=== PATIENT | female | born 1955 | race Caucasian/White ===

== ENCOUNTER 2023-09-11 14:40 | Inpatient (IN) | payer OTHER ==
[~2023-09-11] VITALS: Ht 167.6 cm; Wt 72.0 kg
[2023-09-11] VITALS (14 sets, daily range): BP systolic 106–137; BP diastolic 75–103
[~2023-09-11 14:40] MED LIST: ALBU90OI INH; AZIT250 PO; CALCA500CH PO; CYCL10 PO; HYDGUAL120 PO; INTE3SY; OMEP40CA12 PO; OXYACE5T PO; PARO30; RANI150 PO; RIBOFLAVIN; RXOXYACE PO
[2023-09-11 15:09] LABS: Base Excess Venous 2.7 mmol/L; Bicarbonate Venous 26.2 mmol/L (24.0-30.0); PCO2 Venous 36.2 mmHg (38-42); pH Blood Venous 7.47 (7.34-7.37)
[2023-09-11 15:18] LABS: BASOPHILS ABSOLUTE AUTO 0.07 K/mm3 (0.00-0.23); BASOPHILS PERCENT AUTO 1 % (0-2); EOSINOPHILS ABSOLUTE AUTO 0.03 K/mm3 (0.00-0.68); EOSINOPHILS PERCENT AUTO 0 % (0-6); Hematocrit 39.1 % (33.0-51.0); Hemoglobin 12.8 g/dL (11.5-16.0); IMMATURE GRAN ABSOLUTE AUTO 0.12 K/mm3 (0.00-0.10); IMMATURE GRAN PERCENT AUTO 1 % (0-1); LYMPHOCYTES ABSOLUTE AUTO 1.22 K/mm3 (0.84-5.20); LYMPHOCYTES PERCENT AUTO 8 % (21-46); MONOCYTES ABSOLUTE AUTO 1.15 K/mm3 (0.16-1.47); MONOCYTES PERCENT AUTO 8 % (4-13); Mean Corpuscular HGB 27.6 pg (26.0-34.0); Mean Corpuscular HGB Conc 32.7 g/dL (31.5-36.5); Mean Corpuscular Volume 84 fL (80-100); Mean Platelet Volume 10.1 fL (9.1-12.4); NEUTROPHILS ABSOLUTE AUTO 12.73 K/mm3 (1.96-9.15); NEUTROPHILS PERCENT AUTO 83 % (41-73); Platelet Count 190 K/mm3 (150-400); RDW Coefficient Variation 13.1 % (11.7-14.2); RDW Standard Deviation 39.9 fL (35.1-46.3); Red Blood Cell Count 4.64 M/mm3 (3.80-5.20); White Blood Cell Count 15.32 K/mm3 (4.00-11.30)
[2023-09-11 15:22] LABS: Albumin, Blood 2.8 g/dL (3.4-5.0); Albumin/Globulin Ratio 0.7 (0.8-1.8); Bilirubin, Total 1.1 mg/dL (0.1-1.0); Bun/Creatinine Ratio 37.7 (12.0-20.0); Creatinine, Blood 0.64 mg/dL (0.40-1.00); Globulin, Blood 4.1 g/dL (2.2-4.0); Magnesium, Blood 2.1 mg/dL (1.6-2.4); Potassium, Blood 3.7 mmol/L (3.5-5.5); Total Protein, Blood 6.9 g/dL (6.4-8.2)
[2023-09-11 15:24] LABS: International Normalized Ratio 1.13; Prothrombin Time Results 11.8 Sec (9.7-11.5)
[2023-09-11 15:42] LABS: Influenza A, PCR NEGATIVE (NEGATIVE); Influenza B, PCR NEGATIVE (NEGATIVE); Resp Syncytial Virus, PCR NEGATIVE (NEGATIVE); SARS-Cov-2 (COVID-19) PCR, MMC NEGATIVE (NEGATIVE)
--- NOTE | 2023-09-11 20:25 | NUR ---
PATIENT ARRIVED TO ICU 10 VIA GURNEY FROM ED. PATIENT AWAKE AND FEARFUL. EYAK. VOICE HORSE WHISPER. WITH ANY STIMULI AND WITH TALKING PATIENT HAVING HARSH NONPRODUCTIVE COUGH. OXYGEN 4L/NC INCREASED TO 6L/OXYMIZER AND NEEDING COACHING WITH FOCUSED BREATHING. PATIENT TRANSFER TO BED USING SLIDER SHEET AND PLACED ON ICU MONITORS. PATIENT C/O RIGHT LEG PAIN WITH SLIGHT MOVEMENT.
[2023-09-11 21:22] LABS: Source, Urine Foley catheter
--- NOTE | 2023-09-11 21:30 | NUR ---
DONALD ACCOUNT SUPERVISOR, NOTIFIED OF TEMP 101.2 AND LACTIC CONTINUES 2.9. PLAN TO RECHECK LACTIC IN THE AM. NS @75/HR. NIÑO PLACED FOR CLOSE MONITORING OF I&O AND DIFFICULTY WITH INCONT DUE TO SOB AND HARSH COUGH. NIÑO WITH TEMP PROBE PLACED. DIFFICULT PLACEMENT DUE TO PAIN TO RIGHT LEG.
[2023-09-11 21:42] LABS: Bilirubin, Urine Neg (Neg); Blood, Urine 2+ (Neg); Glucose Qualitative, Urine Neg (Neg); Ketones, Urine 1+ (Neg); Leukocyte Esterase, Urine 1+ (Neg); Nitrite, Urine Neg (Neg); Protein, Urine 2+ (Neg); Specific Gravity, Urine 1.015 (1.003-1.022); Urobilinogen, Urine 1+ (Normal)
[2023-09-11 21:50] LABS: Appearance, Urine Hazy (Clear); Bacteria Few /hpf; Color, Urine Yellow (P-Yellow); Squamous Epithelial Cells Many /hpf (Few); Transitional Epithelial Cells Few /hpf (0-Rare); White Blood Cells, Urine 0-2 /hpf (0-5)
--- NOTE | 2023-09-11 23:00 | NUR ---
SPOKE WITH DONALD HEREDIA REGARDING PROLONGED QT. PLAN TO GIVE MAG IV BEFORE AZITHROMYCIN DOSE. IV FLUIDS CHANGED TO TKO DUE TO RIGHT HEART STRAIN FROM PE'S.
[2023-09-12] VITALS (60 sets, daily range): BP systolic 88–152; BP diastolic 62–131
[2023-09-12 03:36] LABS: BASOPHILS ABSOLUTE AUTO 0.08 K/mm3 (0.00-0.23); BASOPHILS PERCENT AUTO 1 % (0-2); EOSINOPHILS ABSOLUTE AUTO 0.12 K/mm3 (0.00-0.68); EOSINOPHILS PERCENT AUTO 1 % (0-6); Hematocrit 32.5 % (33.0-51.0); Hemoglobin 10.7 g/dL (11.5-16.0); IMMATURE GRAN ABSOLUTE AUTO 0.09 K/mm3 (0.00-0.10); IMMATURE GRAN PERCENT AUTO 1 % (0-1); LYMPHOCYTES ABSOLUTE AUTO 1.69 K/mm3 (0.84-5.20); LYMPHOCYTES PERCENT AUTO 14 % (21-46); MONOCYTES ABSOLUTE AUTO 1.35 K/mm3 (0.16-1.47); MONOCYTES PERCENT AUTO 11 % (4-13); Mean Corpuscular HGB Conc 32.9 g/dL (31.5-36.5); Mean Corpuscular Volume 85 fL (80-100); Mean Platelet Volume 10.6 fL (9.1-12.4); NEUTROPHILS ABSOLUTE AUTO 8.77 K/mm3 (1.96-9.15); NEUTROPHILS PERCENT AUTO 72 % (41-73); Platelet Count 163 K/mm3 (150-400); RDW Coefficient Variation 13.2 % (11.7-14.2); RDW Standard Deviation 40.4 fL (35.1-46.3); Red Blood Cell Count 3.82 M/mm3 (3.80-5.20)
[2023-09-12 03:50] LABS: International Normalized Ratio 1.11; Prothrombin Time Results 11.6 Sec (9.7-11.5)
[2023-09-12 04:00] LABS: Albumin, Blood 2.3 g/dL (3.4-5.0); Albumin/Globulin Ratio 0.6 (0.8-1.8); Bilirubin, Total 0.7 mg/dL (0.1-1.0); Bun/Creatinine Ratio 37.7 (12.0-20.0); Calcium, Blood 8.3 mg/dL (8.5-10.1); Creatinine, Blood 0.58 mg/dL (0.40-1.00); Globulin, Blood 3.7 g/dL (2.2-4.0); Magnesium, Blood 3.2 mg/dL (1.6-2.4); Potassium, Blood 3.6 mmol/L (3.5-5.5)
--- NOTE | 2023-09-12 06:46 | NUR ---
SUMMARY PATIENT SLEEPING MOST OF THE NIGHT. RESP EVEN AND UNLABORED, BIOX 93-97% ON 7L/OXY. WHEN AWAKE HAVING HARSH NONPRODUCTIVE COUGH, LUNG SOUNDS CONTINUE TO BE COARSE T/O. RIGHT LEG CONTINUES TO BE PAINFUL WITH SLIGHT MOVEMENT. NIÑO DRAINING SMALL AMT OF DARK AMBIKA URINE.
--- NOTE | 2023-09-12 08:51 | NUR ---
AM NOTE.... ASSUMED CARE OF PT AT 0700. PT IS A&Ox4, VERY PAUMA. SHE IS IN SR/ST IN THE 90'S TO LOW 100'S. BP IS SOFT BUT STABLE WITH MAPS >65. PT C/O OF BLE PAIN, PEDAL PULSES ARE PALPABLE BILATERALLY. SHE IS ON 7L OXYMIZER WITH O2 SATS>89%. L/S COARSE T/O RR IS IN THE 20'S. BT PRESENT AND HYPOACTIVE, ABD IS SOFT AND NONTENDER TO PALPATION. TEMP NIÑO IS PATENT AND DRAINING AMBIKA URINE TO GRAVITY. CURRENT TEMP IS 99.3. CALL LIGHT IN REACH WILL CONTINUE TO MONITOR.
--- NOTE | 2023-09-12 12:46 | NUR ---
0010--- PT'S EARS CLEANED CALLED DR HODGE TO COME LOOK INTO PT'S EARS. SHE IS COMPLAINING OF NOT BEING ABLE TO HEAR WELL AND SHE HAS A HISTORY OF NEEDING THEM CLEANED OUT FREQ. PT'S FRIEND IN ROOM IS STRONGLY ADVOCATING FOR THE PATIENTS EARS TO BE CLEANED OUT. AFTER DR HODGE SAW THEY WERE VERY IMPACTED HE ADVISED US TO USE SALINE OR SOME OTHER EAR CLEANING PRODUCT TO FLUSH IN HER EARS TO HELP LOOSEN THE IMPACTED EAR WAX. I USED 2 SALINE SYRINGE FLUSHES INTO EACH YEAR AND THEN SHE WANTED A WARM WASH CLOTH PLACED ON EACH EAR TO HOLD FOR A WHILE. NO WAX CAME OUT OF YET BUT WILL FLUSH AGAIN LATER.
--- NOTE | 2023-09-12 15:07 | NUR ---
PT LEFT FOR BOX PERSON PT LEFT FOR BOX PERSON AT 1505.
--- NOTE | 2023-09-12 17:44 | NUR ---
SHIFT SUMMARY.... NO ACUTE NEGATIVE CHANGES NOTED THIS SHIFT. THE PT'S EARS WERE CLEANED OUT TWICE BY MILTON CROOKS RN. THE PT CONTINUES TO BE VERY [place] AFTER THE CLEANING. THE PT'S VS STABLE T/O THIS SHIFT. HER O2 HAS BEEN TITRATED DOWN FROM 7L OXYMIZER TO 3L NC WITH O2 SATS>90%. THE PT HAS BEEN MEDICATED x3 FOR PAIN PER EMAR. TMAX THIS SHIFT 100.4. THE PT HAS NOT HAD A BM. SHE WAS TAKEN TO THE VETERINARY MEDICINE SCIENTIST AT APROX 1500 AND RETURNED AT 1605. SHE CONTINUES TO BE IN SINUS TACH IN THE LOW 100'S. BP IS STABLE AT 136/92. CALL LIGHT IN REACH WILL CONTINUE TO MONITOR UNTIL REPORT IS GIVEN TO ONCOMING RN.
--- NOTE | 2023-09-12 18:00 | NUR ---
1700 -- cleaned out ears with hydrogen peroxide flushes got out a significant amount of hard wax out of each ear. After flushing for about 30 minutes she stated she could hear again. She agreed to having the ear softening ointment tonight, but not now.
--- NOTE | 2023-09-12 20:10 | NUR ---
PATIENT SITTING UP WATCHING TV. CONTINUES TO C/O RIGHT LEG PAIN GOOD PAIN RELIEF WITH MORPHINE IV. VOICE CONTINUES TO BE HORSE, DRY NONPRODUCTIVE COUGH APPEARS TO TRIGGER WITH TALKING. PATIENT HEARING CONVERSATION BETTER TONIGHT. BIOX 93% ON 3L/NC. DRESSING CD&I TO RIGHT NECK AREA SOFT WITH NO SWELLING SEEN. EDUCATION REGARDING DVT/PE/BLOOD THINNERS/AND IVC FILTERS.
[2023-09-12] MEDS ORDERED: MELATONIN5 M1 PO (23:39)
[2023-09-13] VITALS (7 sets, daily range): BP systolic 121–148; BP diastolic 82–113
[2023-09-13 03:26] LABS: BASOPHILS ABSOLUTE AUTO 0.09 K/mm3 (0.00-0.23); BASOPHILS PERCENT AUTO 1 % (0-2); EOSINOPHILS ABSOLUTE AUTO 0.29 K/mm3 (0.00-0.68); EOSINOPHILS PERCENT AUTO 3 % (0-6); Hematocrit 32.4 % (33.0-51.0); Hemoglobin 10.7 g/dL (11.5-16.0); IMMATURE GRAN ABSOLUTE AUTO 0.05 K/mm3 (0.00-0.10); IMMATURE GRAN PERCENT AUTO 1 % (0-1); LYMPHOCYTES PERCENT AUTO 15 % (21-46); MONOCYTES ABSOLUTE AUTO 0.98 K/mm3 (0.16-1.47); MONOCYTES PERCENT AUTO 9 % (4-13); Mean Corpuscular HGB 27.9 pg (26.0-34.0); Mean Corpuscular Volume 84 fL (80-100); Mean Platelet Volume 9.9 fL (9.1-12.4); NEUTROPHILS ABSOLUTE AUTO 7.59 K/mm3 (1.96-9.15); NEUTROPHILS PERCENT AUTO 72 % (41-73); Platelet Count 209 K/mm3 (150-400); RDW Coefficient Variation 13.1 % (11.7-14.2); RDW Standard Deviation 40.1 fL (35.1-46.3); Red Blood Cell Count 3.84 M/mm3 (3.80-5.20)
[2023-09-13 03:51] LABS: Albumin, Blood 2.3 g/dL (3.4-5.0); Anion Gap 7 mmol/L (6-16); Blood Urea Nitrogen 18 mg/dL (8-24); Bun/Creatinine Ratio 34.3 (12.0-20.0); CO2, Blood 25 mmol/L (21-32); Calcium, Blood 8.2 mg/dL (8.5-10.1); Chloride, Blood 108 mmol/L (98-108); Creatinine, Blood 0.53 mg/dL (0.40-1.00); Glomerular Filtration Rate 99 (60-); Glucose, Blood 91 mg/dL (70-99); Magnesium, Blood 2.4 mg/dL (1.6-2.4); Phosphorus, Blood 3.8 mg/dL (2.5-4.9); Potassium, Blood 3.7 mmol/L (3.5-5.5); Sodium, Blood 140 mmol/L (136-145)
--- NOTE | 2023-09-13 07:19 | NUR ---
PATIENT SLEEPING OFF AND ON T/O NIGHT. CONTINUES TO BECOME SOB WITH ACTIVITY AND TALKING, OCCASIONAL HARSH DRY COUGH. REMAINS ON 3L/NC TO MAINTAIN BIOX >90% CONTINUES TO HAVE SEVERE RIGHT LEG PAIN WITH SLIGHT MOVEMENT. ON BEDPAN TWICE DURING THE NIGHT PASSING SMALL SOFT BROWN STOOL ONCE AND FLATUS 2ND TIME. ABLE TO ASSIST WITH REPOSITIONING IN BED.
--- NOTE | 2023-09-13 17:34 | NUR ---
SUMMARY PT A/O X4. HAS PAIN IN R LEG WHEN MOVING IT. TYLENOL AND MORPHINE GIVEN. SOB WITH EXERTION. TRIED TO GET PT OOB TO CHAIR BUT PT DECLINED. OFFERED TO HELP HER SIT AT EDGE OF BED BUT SHE ALSO DECLINED. PT GETS ANXIOUS AND SOB WHEN DISCUSSING MOVEMENT AND GETTING HER BACK TO HER BASELINE STRENGTH. PHYSICAL THERAPY ORDERED BUT NO EVAL TODAY. STARTED ON HEPARIN GTT TODAY AND LOVENOX STOPPED. PT IS TO HAVE AN ADRENAL BIOPSY ON 09/15. BOTH SON'S UPDATED BY DR. HODGE.
--- NOTE | 2023-09-13 18:40 | NUR ---
Pt transfered from ICU. Pt oriented to room and call light. Vss. Will continue to monitor,
--- NOTE | 2023-09-13 22:29 | NUR ---
ASSUMPTION OF CARE: PATIENT IS ALERT AND ORIENTED X 4 WITH SEVERE ANXIETY DUE TO PAIN AT SHIFT CHANGE. PATIENT YELLING OUT IN PAIN. AT ASSUMPTION OF CARE SHE WAS SITTING ON BSC, BOWEL MOVEMENT WITH SMALL STREAKS OF HEMMROIDAL BLOOD. PATINET INFUSING HEPARIN VERIFIED WITH LEAVING RN. 4mg OF MORPHINE WAS GIVEN FOR WOB, PAIN, AND ANXIETY. WITH GREAT AFFECT, PATIENT WOB DECREASED FROM LOW 30'S WITH TRANSFER FROM BSC TO BED AND REPOSITION TO 20'S AND CURRENTLY IN THE UPPER TEENS. SPO2 DURING EXERTION DID DROP DUE TO INEFFECTIVE BREATHING PATTERN AND ANXIETY LOWEST WAS 81% ON 3L AFTER MEDICATING UP TO UPPER 90'S MAINLY 96%. PATIENT DENIES CHEST PAIN PRESSURE OR SOB. INFUSED 2 X ABX ROCEPHIN AND AZITHRO, HEPARIN DRIP DID GET INCREASED SEE DEC. TELE AND CONTINUOUS MONITOR IN PLACE.
[2023-09-14] VITALS (7 sets, daily range): BP systolic 123–142; BP diastolic 71–99
--- NOTE | 2023-09-14 01:04 | NUR ---
ASSUMPTION OF CARE RECEIVED REPORT FROM KATHRYN COSTA AND ASSUMED CARE. PT IS RESTING IN BED, NO CONCERNS AT THIS TIME. WILL CONTINUE TO MONITOR AND WILL CONTINUE PLAN OF CARE. HEPARIN GTT AT 21 U/KG/HR.
[2023-09-14 03:19] LABS: BASOPHILS ABSOLUTE AUTO 0.08 K/mm3 (0.00-0.23); BASOPHILS PERCENT AUTO 1 % (0-2); EOSINOPHILS ABSOLUTE AUTO 0.32 K/mm3 (0.00-0.68); EOSINOPHILS PERCENT AUTO 3 % (0-6); Hematocrit 30.7 % (33.0-51.0); Hemoglobin 10.2 g/dL (11.5-16.0); IMMATURE GRAN ABSOLUTE AUTO 0.05 K/mm3 (0.00-0.10); IMMATURE GRAN PERCENT AUTO 1 % (0-1); LYMPHOCYTES ABSOLUTE AUTO 1.26 K/mm3 (0.84-5.20); LYMPHOCYTES PERCENT AUTO 12 % (21-46); MONOCYTES ABSOLUTE AUTO 0.93 K/mm3 (0.16-1.47); MONOCYTES PERCENT AUTO 9 % (4-13); Mean Corpuscular HGB Conc 33.2 g/dL (31.5-36.5); Mean Corpuscular Volume 84 fL (80-100); Mean Platelet Volume 9.7 fL (9.1-12.4); NEUTROPHILS ABSOLUTE AUTO 7.74 K/mm3 (1.96-9.15); NEUTROPHILS PERCENT AUTO 75 % (41-73); Platelet Count 237 K/mm3 (150-400); RDW Standard Deviation 39.7 fL (35.1-46.3); Red Blood Cell Count 3.64 M/mm3 (3.80-5.20); White Blood Cell Count 10.38 K/mm3 (4.00-11.30)
[2023-09-14 03:39] LABS: Albumin, Blood 2.2 g/dL (3.4-5.0); Albumin/Globulin Ratio 0.6 (0.8-1.8); Bilirubin, Total 0.4 mg/dL (0.1-1.0); Bun/Creatinine Ratio 33.3 (12.0-20.0); Calcium, Blood 8.3 mg/dL (8.5-10.1); Creatinine, Blood 0.45 mg/dL (0.40-1.00); Globulin, Blood 3.7 g/dL (2.2-4.0); Potassium, Blood 3.7 mmol/L (3.5-5.5); Total Protein, Blood 5.9 g/dL (6.4-8.2)
--- NOTE | 2023-09-14 06:26 | NUR ---
PT HAS RESTED WELL OF AND ON THROUGHOUT SHIFT. DENIES COMPLAINTS OR CONCERNS THIS MORNING. PLAN IS TO CONTINUE HEPARIN PER PHARMACY ORDERS UNTIL 6 HOURS PRIOR TO BIOPSY SCHEDULED ON 09/15. HEPARIN ADJUSTED PER PHARMACY ORDERS TO 24 U/KG/ML AND VERIFIED WITH MARYLIN RN. WILL PROVIDE BEDSIDE REPORT TO DAY SHIFT RN.
--- NOTE | 2023-09-14 07:59 | NUR ---
NURSING PCU DAYSHIFT: Assumed care of pt at approx 0700. A/O, very anxious, pleasant, cooperative w/care though requires significant amount of encouragement. [place], b/l hearing devices in place. C/O 6/10 RLE pain w/minimal movement and at times c/o pain while at rest. Skin is intact w/no breakdown noted. Repositions w/staff assist. Tele in place, ST 110-115, no c/o CP/pressure, SBP 130's, no noted edema. L/S fairly cta in upper lobes though coarse in mid/lower lobes, O2 sat mid 90's on 3L NC, respirations rapid and shallow, dyspnea w/minimal exertion, cough producing clear/stringy sputum, continuous O2 monitoring in place. Abd SNT, BT+, last BM today, FC w/stat lock in place. No s/s of acute distress this a.m. Pt requested bedpan for BM this a.m. and initially refused to get OOB stating "I can't" before attempting. With much encouragement from staff, pt assisted to edge of bed and was able to ambulate to bathroom w/FWW. Currently sitting in recliner having breakfast, visiting with son at bedside. Plan to remove FC this a.m. after family visit. Pt denies any current needs or qustions regarding plan of care. Awaiting rounding from PMD, call light in reach, cont to monitor for changes.
--- NOTE | 2023-09-14 17:35 | NUR ---
NURSING PCU DAYSHIFT SUMMARY: Pt has done very well t/o shift. Spent entire day OOB in recliner. FC removed, ambulates to bathroom w/FWW to void. Shower this a.m. w/assistance, tolerated well. Continues to have cough producing clear sputum. O2 sat stable on 3L NC. Several visitors at bedside t/o the shift. Pt has remained in good spirits and has been participating with ADL's. Worked w/therapy today and is agreeable with discharge to SNF. Spoke w/labor and employment paralegal and PMD regarding broch/bx, plan for possible procedure on Tuesday, pt and son updated regarding plan. No s/s of acute distress at this time. Pt remains in recliner, RN at bedside for powerglide placement. Call light in reach, cont to monitor until rpt is given to NOC RN.
--- NOTE | 2023-09-14 20:53 | NUR ---
AOC: CHANGES FROM PREVIOUS SHIFT: NO LONGER HAS NIÑO IN PLACE. PATIENT IS TOLERATING EXERTION BETTER, HEARTRATE IS SLIGHTLY INCREASED 110-120'S MOST LIKELY DUE TO RIGHT HEART STRAIN RR STILL <20 AT REST. PATIENT O2 >94% ON 3L VIA NC. PATIENT EDUCATED FOR >30MINUTES ON PLAN OF CARE, NEW PLAN FOR Bx, MEDICATIONS, AND CURRENT ILLNESS. DENIES CHEST PAIN PRESSURE OR SOB AT REST. IMPROVED PAIN MANAGEMENT WITH OXYCODONE. YOSI IN THE RECLINER PILLOW SUPPORT, INFUSING HEPARIN AT 27 U/KG, WHICH WAS CHANGED FROM DURING DAY, SO HEPARIN THERAPY STILL BEING MONITORED BY PHARM CLOSELY. JULIET Chavira RN CONFIRMED HEPARIN. PATIENT OVERALL STATUS IMPROVING ABX RUNNING.
[2023-09-15] VITALS (20 sets, daily range): BP systolic 108–149; BP diastolic 69–100
[2023-09-15 00:57] LABS: BASOPHILS ABSOLUTE AUTO 0.06 K/mm3 (0.00-0.23); BASOPHILS PERCENT AUTO 1 % (0-2); EOSINOPHILS ABSOLUTE AUTO 0.26 K/mm3 (0.00-0.68); EOSINOPHILS PERCENT AUTO 2 % (0-6); Hematocrit 29.8 % (33.0-51.0); Hemoglobin 9.9 g/dL (11.5-16.0); IMMATURE GRAN ABSOLUTE AUTO 0.09 K/mm3 (0.00-0.10); IMMATURE GRAN PERCENT AUTO 1 % (0-1); LYMPHOCYTES ABSOLUTE AUTO 1.59 K/mm3 (0.84-5.20); LYMPHOCYTES PERCENT AUTO 13 % (21-46); MONOCYTES PERCENT AUTO 9 % (4-13); Mean Corpuscular HGB 28.2 pg (26.0-34.0); Mean Corpuscular HGB Conc 33.2 g/dL (31.5-36.5); Mean Corpuscular Volume 85 fL (80-100); Mean Platelet Volume 9.9 fL (9.1-12.4); NEUTROPHILS ABSOLUTE AUTO 8.77 K/mm3 (1.96-9.15); NEUTROPHILS PERCENT AUTO 74 % (41-73); Platelet Count 307 K/mm3 (150-400); RDW Coefficient Variation 12.9 % (11.7-14.2); RDW Standard Deviation 39.5 fL (35.1-46.3); Red Blood Cell Count 3.51 M/mm3 (3.80-5.20); White Blood Cell Count 11.87 K/mm3 (4.00-11.30)
[2023-09-15 01:18] LABS: Albumin, Blood 2.2 g/dL (3.4-5.0); Anion Gap 8 mmol/L (6-16); Blood Urea Nitrogen 13 mg/dL (8-24); Bun/Creatinine Ratio 25.5 (12.0-20.0); CO2, Blood 25 mmol/L (21-32); Calcium, Blood 8.2 mg/dL (8.5-10.1); Chloride, Blood 104 mmol/L (98-108); Creatinine, Blood 0.51 mg/dL (0.40-1.00); Glomerular Filtration Rate 100 (60-); Glucose, Blood 100 mg/dL (70-99); Potassium, Blood 3.6 mmol/L (3.5-5.5); Sodium, Blood 137 mmol/L (136-145)
--- NOTE | 2023-09-15 06:15 | NUR ---
EOS: PATIENT NPO SINCE MIDNIGHT. COOPERATIVE WITH CARE, SLEEPT MOST OF THE NIGHT. HEPARIN THERAPIC, NO CHANGE. NO OTHER CHANGES FROM ASSUMPTION OF CARE
--- NOTE | 2023-09-15 14:58 | NUR ---
Spiritual care visit conducted. Patient is sitting on a chair and alert. She immediately shares her frustration about being missed diagnosed, unheard and dismissed as a patient. She also speaks of her disappointment at now being tested for some fairly significant medical issues that could have been prevented if someone would have listened at the different facilities she went to for help. Patient then talks at length about the of her spouse (patient stated that this program counselor was present at his ), she talks about her family, possible loss of independence and how she might manage given the worst case scenario. We discuss her rhea and how she leans into God for support. I normalize her frustrations and feelings, highlight the positives in her medical care, and provide therapeutic listening and prayer. PAtient responded well and showed signs of greater peace. I will cotninue to remian available to patient and family.
--- NOTE | 2023-09-15 15:02 | NUR ---
09/15/23 1502 Jessica Ibarra HISTORY, CHART, MEDICATIONS AND ALLERGIES REVIEWED BEFORE START OF PROCEDURE. PATIENT CONFIRMS NPO STATUS AND AGREES WITH SCHEDULED PROCEDURE. 3-LEAD EKG REVIEWED WITH PHYSICIAN PRIOR TO START OF PROCEDURE. MONITOR INTACT WITH CONTINUOUS PULSE OXIMETRY,CAPNOGRAPHY, 3-LEAD EKG, INTERMITTENT BP. SUPPLEMENTAL O2 TO BE TITRATED THROUGHOUT PROCEDURE TO MAINTAIN O2 SATURATION ABOVE 90%. PATIENT DETERMINED TO BE ASA APPROPRIATE FOR PROPOFOL SEDATION PRIOR TO START OF PROCEDURE BY .
--- NOTE | 2023-09-15 17:27 | NUR ---
END OF SHIFT PT A&O X4. VSS. MONITOR SHOWING ST, HR 100-110s. SPO2 > 92% ON 3L NC W/ PT REPORT OF RA @ BASELINE. PT COUGHING SMALL AMOUNT OF CLEAR SPUTUM THIS SHIFT. PT NPO TODAY FOR BRONCH. PT BACK FROM [facility]ONCH W/ MD GROSS INSTRUCTION FOR PT TO REMAIN NPO UNTIL 1800 POST PROCEDURE & ASSESS ABILITY TO SWALLOW WATER BEFORE RESUMING REGULAR DIET. HEPARIN GTT ON STANDBY PRIOR TO PROCEDURE & WILL REMAIN ON STANDBY UNTIL 1900 PER MD GROSS INSTRUCTION. PT REPORTING R HIP & RLE PAIN, REQUIRING PAIN MEDICATION PER EMAR/PT REQUEST THIS SHIFT.
[2023-09-16] VITALS (7 sets, daily range): BP systolic 117–131; BP diastolic 68–79
[2023-09-16 01:15] LABS: BASOPHILS ABSOLUTE AUTO 0.06 K/mm3 (0.00-0.23); BASOPHILS PERCENT AUTO 1 % (0-2); EOSINOPHILS ABSOLUTE AUTO 0.13 K/mm3 (0.00-0.68); EOSINOPHILS PERCENT AUTO 1 % (0-6); Hematocrit 29.3 % (33.0-51.0); Hemoglobin 9.7 g/dL (11.5-16.0); IMMATURE GRAN ABSOLUTE AUTO 0.09 K/mm3 (0.00-0.10); IMMATURE GRAN PERCENT AUTO 1 % (0-1); LYMPHOCYTES ABSOLUTE AUTO 1.27 K/mm3 (0.84-5.20); LYMPHOCYTES PERCENT AUTO 11 % (21-46); MONOCYTES ABSOLUTE AUTO 1.15 K/mm3 (0.16-1.47); MONOCYTES PERCENT AUTO 10 % (4-13); Mean Corpuscular HGB Conc 33.1 g/dL (31.5-36.5); Mean Corpuscular Volume 84 fL (80-100); Mean Platelet Volume 9.5 fL (9.1-12.4); NEUTROPHILS ABSOLUTE AUTO 9.16 K/mm3 (1.96-9.15); NEUTROPHILS PERCENT AUTO 77 % (41-73); Platelet Count 338 K/mm3 (150-400); RDW Coefficient Variation 13.2 % (11.7-14.2); Red Blood Cell Count 3.47 M/mm3 (3.80-5.20); White Blood Cell Count 11.86 K/mm3 (4.00-11.30)
[2023-09-16 01:33] LABS: Albumin, Blood 2.2 g/dL (3.4-5.0); Anion Gap 6 mmol/L (6-16); Blood Urea Nitrogen 9 mg/dL (8-24); Bun/Creatinine Ratio 18.8 (12.0-20.0); CO2, Blood 26 mmol/L (21-32); Calcium, Blood 8.3 mg/dL (8.5-10.1); Chloride, Blood 107 mmol/L (98-108); Creatinine, Blood 0.48 mg/dL (0.40-1.00); Glomerular Filtration Rate 102 (60-); Glucose, Blood 117 mg/dL (70-99); Phosphorus, Blood 3.8 mg/dL (2.5-4.9); Potassium, Blood 3.6 mmol/L (3.5-5.5); Sodium, Blood 139 mmol/L (136-145)
--- NOTE | 2023-09-16 04:21 | NUR ---
SHIFT SUMMARY. PT HAS BEEN DOING WELL THIS SHIFT. AOX4, PLEASANT, COOPERATIVE WITH CARE. ABLE TO SLEEP THROUGH MOST OF SHIFT AFTER SHIFT ASSESSMENT AND 2100 MED PASS. CALLS APPROPRIATELY FOR ASSISTANCE. PAIN WELL MANAGED PER EMAR. HAS BEEN MAINTAINING O2 SATS >92% THROUGHOUT SHIFT ON 3 L O2 VIA NC. HEPARIN INFUSION RUNNING SINCE 1899 LAST NIGHT WITHOUT DIFFICULTY OR PAUSE. TITRATED THIS MORNING WITH ASSISTANCE FROM JACY JIMENEZ RN. WAS ABLE TO EAT SNACKS YESTERDAY EVENING WITHOUT DIFFICULTY INDEPENDENTLY. BED LOCKED IN LOWEST POSITION. CALL LIGHT LEFT WITHIN REACH.
[2023-09-16 11:00] LABS: SARS-Cov-2 (COVID-19) PCR, MMC NEGATIVE (NEGATIVE)
[2023-09-16] MEDS ORDERED: Acetaminophen650 M1 PO (14:24)
[2023-09-16] MEDS ORDERED: CARB10OTL BOTHEARS (14:29)
[2023-09-16] MEDS ORDERED: GABA100 PO (14:29)
[2023-09-16] MEDS ORDERED: OXAYDO5 M1 PO (14:37)
[2023-09-16] MEDS ORDERED: XARELTO20 MG PO (14:38)
[2023-09-16] MEDS ORDERED: VISBIOME 112.51 EACH PO (14:38)
--- NOTE | 2023-09-16 17:38 | NUR ---
ASSUMED CARE OF PT AT 0700 THIS AM. CARE MANAGEMENT WORKING ON ARRANGEMENTS FOR PT TRANSFER TO [facility]. PT WAS INITIALLY RELUCTANT AND ANXIOUS TO BE DISCHARGED TODAY, BUT AFTER DISCUSSION WITH CARE MANAGEMENT AND DR HODGE TODAY, PT IS AMENABLE TO DISCHARGE TODAY. DISCHARGE ORDERS OBTAINED AND PAPERWORK COMPLETED AND READY FOR TRANSFER. [facility] CONTACTED WILBERTO IN CARE MANAGEMENT, THEY ARE UNABLE TO TAKE PT TODAY DUE TO STAFFING ISSUES. PLAN IS TO DISCHARGE TOMORROW. PT HAS DONE WELL T/O THE DAY, VSS. TEMP 100.[address] HODGE NOTIFIED. PT IS ABLE TO USE CALL LIGHT FOR NEEDS. CALL LIGHT IN REACH. WILL CONITNUE TO MONITOR/TREAT AND GIVE REPORT TO NOC SHIFT RN.
[2023-09-17 05:16] VITALS: BP 130/86
[2023-09-17 05:28] LABS: BASOPHILS ABSOLUTE AUTO 0.07 K/mm3 (0.00-0.23); BASOPHILS PERCENT AUTO 1 % (0-2); EOSINOPHILS ABSOLUTE AUTO 0.43 K/mm3 (0.00-0.68); EOSINOPHILS PERCENT AUTO 4 % (0-6); Hemoglobin 9.2 g/dL (11.5-16.0); IMMATURE GRAN ABSOLUTE AUTO 0.17 K/mm3 (0.00-0.10); IMMATURE GRAN PERCENT AUTO 2 % (0-1); LYMPHOCYTES ABSOLUTE AUTO 1.47 K/mm3 (0.84-5.20); LYMPHOCYTES PERCENT AUTO 14 % (21-46); MONOCYTES ABSOLUTE AUTO 1.04 K/mm3 (0.16-1.47); MONOCYTES PERCENT AUTO 10 % (4-13); Mean Corpuscular HGB Conc 32.9 g/dL (31.5-36.5); Mean Corpuscular Volume 85 fL (80-100); Mean Platelet Volume 9.4 fL (9.1-12.4); NEUTROPHILS ABSOLUTE AUTO 7.27 K/mm3 (1.96-9.15); NEUTROPHILS PERCENT AUTO 70 % (41-73); Platelet Count 382 K/mm3 (150-400); RDW Coefficient Variation 13.2 % (11.7-14.2); RDW Standard Deviation 40.8 fL (35.1-46.3); Red Blood Cell Count 3.28 M/mm3 (3.80-5.20); White Blood Cell Count 10.45 K/mm3 (4.00-11.30)
--- NOTE | 2023-09-17 05:54 | NUR ---
SHIFT SUMMARY NO ACUTE CHANGES THIS SHIFT. VSS. REMAINS ON HEPARIN GTT, WO INCIDENT. CONTINUES WITH MOIST COUGHING UP OF CLEAR SPUTUM. PAIN CONTINUES IN R LEG, MEDS PER EMAR ADMINISTERED TO GOOD EFFECT. PT REMAINS PLEASANT AND COOPERATIVE. STATES FEELING READY FOR DC TO SNF TODAY. RESTING OFF AND ON THIS SHIFT. NONIMPULSIVE BUT BED ALARM REMAINS ON A PRECAUTION.
[2023-09-17 07:55] VITALS: BP 129/77
[2023-09-17 11:21] LABS: SARS-Cov-2 (COVID-19) PCR, MMC NEGATIVE (NEGATIVE)
[2023-09-17 11:40] VITALS: BP 119/82
--- NOTE | 2023-09-17 13:27 | NUR ---
DISCHARGE this rn assumed care at 0700. vital signs stable and have remained stable. patient is alert and oriented x4. perrla. patient is able to make needs known and uses call light appropriately. patient reports off and on throughout the shift rated from 5-10 in right leg. patient received pain medications per emar and nonpharmacological interventions. see shift assessment for further assessment. patient educated on discharge information and verbalized understanding. discharge education in packet. patient left with xarelto. patient left with all belongings and in no distress
== END 2023-09-17 13:25 | DRG 166 ==
LOC: ER 14:40 → PCU 18:20 → ICUE 18:20 → PCU 09-13 17:51
PROVIDERS: Family Medicine; Student in an Organized Health Care Education/Training Program; ADMIT Nurse Practitioner Acute Care
PROC: 06H03DZ Insertion of Intraluminal Device into Inferior Vena Cava, Percutaneous Approach (ICD-10-PCS; principal; 2023-09-12)
PROC: 0BBD8ZX Excision of Right Middle Lung Lobe, Via Natural or Artificial Opening Endoscopic, Diagnostic (ICD-10-PCS; 2023-09-15)
DX: I26.92 Saddle embolus of pulmonary artery without acute cor pulmonale (principal); J96.01 Acute respiratory failure with hypoxia; C34.01 Malignant neoplasm of right main bronchus; C77.1 Secondary and unspecified malignant neoplasm of intrathoracic lymph nodes; C79.72 Secondary malignant neoplasm of left adrenal gland; C79.71 Secondary malignant neoplasm of right adrenal gland; C79.51 Secondary malignant neoplasm of bone; D68.9 Coagulation defect, unspecified; E87.3 Alkalosis; I82.403 Acute embolism and thrombosis of unspecified deep veins of lower extremity, bilateral; N39.0 Urinary tract infection, site not specified; D63.0 Anemia in neoplastic disease; E78.5 Hyperlipidemia, unspecified; K21.9 Gastro-esophageal reflux disease without esophagitis; Z88.1 Allergy status to other antibiotic agents; Z86.19 Personal history of other infectious and parasitic diseases; Z87.891 Personal history of nicotine dependence; Z11.52 Encounter for screening for COVID-19
CPT/HCPCS: 0241U; 36415; 37191; 51703; 70490; 71045; 71260; 76937; 80053; 80069; 81001; 82803; 83605; 83735; 83880; 84484; 85025; 85520; 85610; 85730; 87040; 88305; 88341; 88342; 93005; 93010; 93306; 93970; 94640; 94664; 94762; 96365; 96366; 96372-59; 96375; 97110; 97116; 97162; 97530; 99152; 99285-25; A9270; C1751; C1769; C1880; C1894; J0171; J0456; J0692; J0696; J1644; J1650; J2250; J2270; J2704; J3010; J3475; J7030; J7050; J7120; Q9967; U0002

== ENCOUNTER 2023-10-18 10:34 | Inpatient (IN) | payer OTHER ==
[~2023-10-18] VITALS: Ht 165.1 cm; Wt 58.4 kg
[~2023-10-18 10:34] MED LIST changes: +Acetaminophen650 M1 PO; +CARB10OTL BOTHEARS; +GABA100 PO; +MELATONIN5 M1 PO; +OXAYDO5 M1 PO; +VISBIOME 112.51 EACH PO; +XARELTO20 MG PO
[2023-10-18 14:18] LABS: BASOPHILS ABSOLUTE AUTO 0.07 K/mm3 (0.00-0.23); BASOPHILS PERCENT AUTO 1 % (0-2); EOSINOPHILS ABSOLUTE AUTO 0.03 K/mm3 (0.00-0.68); EOSINOPHILS PERCENT AUTO 0 % (0-6); Hemoglobin 10.8 g/dL (11.5-16.0); IMMATURE GRAN ABSOLUTE AUTO 0.08 K/mm3 (0.00-0.10); IMMATURE GRAN PERCENT AUTO 1 % (0-1); LYMPHOCYTES ABSOLUTE AUTO 0.95 K/mm3 (0.84-5.20); LYMPHOCYTES PERCENT AUTO 6 % (21-46); MONOCYTES ABSOLUTE AUTO 1.13 K/mm3 (0.16-1.47); MONOCYTES PERCENT AUTO 7 % (4-13); Mean Corpuscular HGB 26.2 pg (26.0-34.0); Mean Corpuscular HGB Conc 31.8 g/dL (31.5-36.5); Mean Corpuscular Volume 82 fL (80-100); NEUTROPHILS ABSOLUTE AUTO 13.11 K/mm3 (1.96-9.15); NEUTROPHILS PERCENT AUTO 85 % (41-73); Platelet Count 519 K/mm3 (150-400); RDW Coefficient Variation 14.5 % (11.7-14.2); RDW Standard Deviation 43.4 fL (35.1-46.3); Red Blood Cell Count 4.13 M/mm3 (3.80-5.20); White Blood Cell Count 15.37 K/mm3 (4.00-11.30)
[2023-10-18 15:22] LABS: Albumin, Blood 2.5 g/dL (3.4-5.0); Albumin/Globulin Ratio 0.5 (0.8-1.8); Bilirubin, Total 0.4 mg/dL (0.1-1.0); Bun/Creatinine Ratio 31.8 (12.0-20.0); Calcium, Blood 10.4 mg/dL (8.5-10.1); Creatinine, Blood 0.66 mg/dL (0.40-1.00); Globulin, Blood 4.8 g/dL (2.2-4.0); Potassium, Blood 4.7 mmol/L (3.5-5.5); Total Protein, Blood 7.3 g/dL (6.4-8.2)
[2023-10-18 15:48] LABS: International Normalized Ratio 1.23; Prothrombin Time Results 12.8 Sec (9.7-11.5)
[2023-10-18 16:03] LABS: Anti-Xa UFH, PHA Monitoring 1.03 IU/mL
[2023-10-18 18:00] VITALS: BP 148/88
--- NOTE | 2023-10-18 18:15 | NUR ---
ADMIT NOTE- PT ADMITTED THROUGH THE ER AFTER A Fx OF THE RIGHT ARM. PT ARRIVED PLEADING FOR PAIN MEDS PRIOR TO TRANSFER WITH ARM SLING IN PLACE. MEDICATED WITH IV FENTANYL AFTER PT WAS TRANSFERED FROM THE [facility]. PT ASKED THAT STAFF WAIT TO GET HER OFF OF HER LINNENS FOR THE MEDICINE TO WORK. PT ASKED STAFF TO SEARCH FOR HER HEARING AID FOR HER RIGHT EAR. UNABLE TO REACH [facility] AT THIS TIME STATION ENGINEER CHIEF IS CALLING ED TO HAVE THEM SEARCH, PT CURRENT LINNENS SEARCHED AND THE RIGHT AID WAS NOT FOUND.
--- NOTE | 2023-10-18 18:51 | NUR ---
Case Conference with pt's son Choco. He understands the patient has stage 4 cancer, and with the arm fracture, the likelihood of recovery is poor. Also spoke to the patient, who is holdling out hope for surgical consult. However, she does not want to remain a full code. Will request code status change, and discuss with physician the possibility of comfort care if surgery is not an option. The patient stated if she is unable to have surgical repair to her R arm, she would like to begin comfort care. Plan to see patient again tomorrow.
--- NOTE | 2023-10-18 19:59 | NUR ---
SHIFT SUMMARY- ASSISTED THE PT TO GET OFF OF THE ED LINNENS. HER ARM IS IN A SLING, SHE REPOSITIONED IT HERSELF DURING THE SWAP. ATTENDS WERE CHANGED, PT HAD URINATED AND HAD A BM. CLEANED AND DRIED PLACED CLEAN ATTENDS. PT IS CURRENTLY ON XERALTO FOR DVT, HEPARIN DRIP ORDERED TO START THIS EVENING. FAXED COPY OF PT MED REC RECIEVED FROM PHARMACY AFTER [facility] HAD REQUESTED IT FROM [facility] FOR ADMIN TIME CLARIFICATION. PT WAS MEDICATED UPON ARRIVAL. HER FRIEND (S.O.) IS AT THE BEDSIDE AT THIS TIME. THE PT IS IN LARGE AMOUNTS OF PAIN AT THIS TIME. ORTHO DOCTOR CAME TO SEE HER AND SPEAK TO THE FAMILY NIGHT RN PRESENT FOR THE INTERACTION. PT TO BE MEDICATED BY NIGHT RN FOR PAIN WHEN NEXT AVAILABLE. NONE OF THE ADMISSION ASSESSMENT WAS COMPLETED BY THIS RN. 2 RN SKIN ASSESSMENT WAS COMPLETED AT THE TIME OF ATTENDS CHANGE. PT IN BED, IN DISTRESS R/T PAIN AT THIS TIME. CALL LIGHT IN REACH.
[2023-10-18] MEDS ORDERED: BISA10S PR (20:35)
[2023-10-18] MEDS ORDERED: FENTANYL1 EA12 TOP (20:36)
--- NOTE | 2023-10-18 20:37 | NUR ---
MERCEDES CORONA CALLED FOR OUT OF CONTROL PAIN. ORDERS RECEIVED. CARE ONGOING.
[2023-10-18] MEDS ORDERED: MIRALAX17 GM PO (20:38)
[2023-10-18] MEDS ORDERED: DULCOLAX400 MG/5 M PO (20:38)
[2023-10-18] MEDS ORDERED: OXYC5 PO (20:39)
[2023-10-18 20:54] VITALS: BP 135/84
--- NOTE | 2023-10-18 22:13 | NUR ---
NOTE PT RESTING QUIETLY. EYES CLOSED. RESP EVEN AND UNLABORED. FRIEND HAS LEFT FOR THE EVENING. PT REFUSED THE BUCKS TRACTION. EQUIPEMENT LEFT IN THE ROOM. CONT BIOX 93% ON 3L N/C. HR 110. TELE SINUS TACH. ALLOWING PT TO REST BEFORE PLACING A NIÑO. CARE ONGOING.
--- NOTE | 2023-10-18 23:18 | NUR ---
NIÑO PT DECLINED NIÑO. SHE REQUESTED A PURWICK INSTEAD. PT NEEDED OLIVIA CARE D/T SMEAR OF STOOL. PREMEDCIATED WITH DILAUDID. SHE WAS QUITE PLEASED WITH HOW COMFORTABLE THE TURNING WAS. RIGHT LE ELEVATED ON PILLOW FOR COMOFRT. RIGHT UE WITH SLING AND ELEVATED WITH A PILLOW. CARE ONGOING.
--- NOTE | 2023-10-19 00:05 | NUR ---
COUGH PT COUGHING UP COPIOS AMOUNTS OF THICK. TORRES/YELLOW SPUTUM THAT SHE SPITS INTO KLEENEX. LUNGS COARSE T/O. SHE SAYS IT'S BEEN THIS WAY FOR A MONTH. HOB UP TO 45 DEGREES FOR EASY OF BREATHING. DILAUDID DOES HELP WITH HER FEELING OF BREATHLESSNESS. CARE ONGOING.
[2023-10-19 02:33] VITALS: BP 122/86
[2023-10-19 02:40] LABS: BASOPHILS ABSOLUTE AUTO 0.05 K/mm3 (0.00-0.23); BASOPHILS PERCENT AUTO 0 % (0-2); EOSINOPHILS ABSOLUTE AUTO 0.04 K/mm3 (0.00-0.68); EOSINOPHILS PERCENT AUTO 0 % (0-6); Hematocrit 33.6 % (33.0-51.0); Hemoglobin 10.8 g/dL (11.5-16.0); IMMATURE GRAN PERCENT AUTO 1 % (0-1); LYMPHOCYTES ABSOLUTE AUTO 1.08 K/mm3 (0.84-5.20); LYMPHOCYTES PERCENT AUTO 7 % (21-46); MONOCYTES ABSOLUTE AUTO 1.28 K/mm3 (0.16-1.47); MONOCYTES PERCENT AUTO 9 % (4-13); Mean Corpuscular HGB 26.2 pg (26.0-34.0); Mean Corpuscular HGB Conc 32.1 g/dL (31.5-36.5); Mean Corpuscular Volume 81 fL (80-100); Mean Platelet Volume 9.1 fL (9.1-12.4); NEUTROPHILS ABSOLUTE AUTO 12.11 K/mm3 (1.96-9.15); NEUTROPHILS PERCENT AUTO 83 % (41-73); Platelet Count 523 K/mm3 (150-400); RDW Coefficient Variation 14.6 % (11.7-14.2); RDW Standard Deviation 42.7 fL (35.1-46.3); Red Blood Cell Count 4.13 M/mm3 (3.80-5.20); White Blood Cell Count 14.66 K/mm3 (4.00-11.30)
--- NOTE | 2023-10-19 02:46 | NUR ---
COUGH PT COUGHING IS UNENDING. SHE IS DESATING FROM COUGHING. CALLED DR OLSEN. RECEIVED AN ORDER FOR JOSEPH MAGUIRE. CHANGED HER HIGH FLOW WITH HUMIDITY AT 5L. SAT 93%. 1 HOUR POST TESSALON PT COUGH HAS DECREASED SIGNIFICANTLY AND SHE IS ABLE TO REST. NOW SAT 95% WITH HR 101. CARE ONGOING.
[2023-10-19 03:09] LABS: Albumin, Blood 2.5 g/dL (3.4-5.0); Albumin/Globulin Ratio 0.5 (0.8-1.8); Bilirubin, Total 0.5 mg/dL (0.1-1.0); Bun/Creatinine Ratio 36.6 (12.0-20.0); Calcium, Blood 10.9 mg/dL (8.5-10.1); Creatinine, Blood 0.68 mg/dL (0.40-1.00); Globulin, Blood 4.9 g/dL (2.2-4.0); Potassium, Blood 4.7 mmol/L (3.5-5.5); Total Protein, Blood 7.4 g/dL (6.4-8.2)
--- NOTE | 2023-10-19 03:50 | NUR ---
NOTE PT RESTING FINALLY. MEDICATED WITH DILAUDID 1MG IV. TESSALON TING EFFECTIVE FOR COUGH. PT ON 5L HIGH FLOW AT 95% AT 5L. HR 101 BPM. TELE MONITOR SHOWS SINUS TACHYCARDIA. PURWICK EFFECTIVE FOR URINARY INCONTINENCE. PT REFUSED NIÑO AND BUCKS TRACTION. RIGHT LEG ELEVATED ON PILLOW FOR COMFORT AND RIGHT UE WITH SLING ELEVATED ON PILLOW FOR COMFORT. PT ABLE TO USE BED CONTROLS FOR REPOSITIONING AND COMFORT WELL. SHE LIKES PEPSI AND REFUSED FOOD. CARE ONGOING.
--- NOTE | 2023-10-19 07:15 | NUR ---
ASSUMED CARE OF PT- ON MORNING ASSESSMENT THE PT STATED "I THINK I HAD TOO MANY PAIN MEDS" SHE REFUSED TO TAKE PAIN MEDS FROM THIS RN AT THIS TIME. SHE WAS ASKED SEVERAL TIMES DURRING THE ASSESSMENT, AND DECLINED EACH TIME. WHEN SHE CALLED AND REQUESTED PAIN MEDS SHE WAS FIRM "I ONLY WANT HALF" MEDICATED WITH 1/2 MG IV DILAUDID IT WAS INEFFECTIVE 4/10 PAIN INCREASED TO 8/10 PAIN SECOND HALF MG WAS ADMINISTERED. SPOKE TO THE PT ABOUT MEDICATING Q2 WITH 1MG OF DILAUDID AND SHE AGREED AT THE TIME OF SECOND 0.5MG DOSE ADMINISTRATION, THAT WOULD BE BEST.
[2023-10-19 07:19] VITALS: BP 145/85
--- NOTE | 2023-10-19 13:27 | NUR ---
Update: Given the pt's current health status, she is not a surgical candidate. Received the update from surgical team and shared this information with Dr. Neal, the bedside RN, the patient and her son. The patient is electing comfort care. Dr. Neal wants to proceed with AVIATION TECHNICIAN to get pt's pain under control, and will begin comfort medications prn. Palliative Care will continue to follow the patient.
--- NOTE | 2023-10-19 20:36 | NUR ---
SHIFT SUMMARY- PT WAS DETERMINED NOT TO BE A CANDIDATE FOR SURGERY TODAY. SHE ELECTED TO CHANGE TO COMFORT CARE. DR WILDER ORDERED A SHEET METAL FABRICATOR PUMP FOR THE PT. THE PT ONLY RECIEVED 1.2ML OF DILAUDID THROUGH THE SHEET METAL FABRICATOR. SHE DID RECIEVE ATIVAN EARLIER IN THE SHIFT AROUND 2PM SHE WAS STRESSED AND ANXIOUSLY ASKING EVERYONE AROUND IF THE SURGERY WAS CANCELLED. PALLIATIVE CARE RN JACY HAS BEEN IN CONTACT WITH THE PT SON AND SISTER. PT HAD FIRENDS AT BEDSIDE ALL SHIFT TO HELP HER THROUGH THIS DIFFICULT TIME. THE PT WAS UNCOMFORTABLE AND CRYING IN OUT OF CONTROL PAIN FOR MOST OF THE DAY. NOW WITH THE SHEET METAL FABRICATOR SHE IS RESTING, SHE WAKES TO SOFT TOUCH AND VOICES, SHE SMILES AND TELLS THIS RN "THERE IS NO PAIN."
--- NOTE | 2023-10-20 04:09 | NUR ---
SHIFT SUMMARY JASVIR WAS DROWSY BUT AWAKE AND FULLY ORIENTED AT THE START OF THE SHIFT. PT NEWLY MADE COMFORT CARE, AND WILL BE PERSUING COMFORT/HOSPICE CARE. PT PAIN IS MANAGED AT THIS TIME TO A TOLERABLE LEVEL PER PT. PT SLEEPING VERY SOUNDLY THROUGH THE NIGHT, NOT USING FRONT LINE SUPERVISOR FREQUENTLY, BUT HAS BEEN DENYING NEED FOR ADDITIONAL PAIN MANAGEMENT SO FAR TONIGHT, WILL CONTINUE TO MONITOR. NO ACUTE EVENTS TONIGHT AND NO CHANGES TO CONDITION, PT RESTING IN BED AT A LOW POSITION WITH THE CALL LIGHT, AND FRONT LINE SUPERVISOR CONTROL IN REACH.
[2023-10-20 09:04] LABS: BASOPHILS ABSOLUTE AUTO 0.05 K/mm3 (0.00-0.23); BASOPHILS PERCENT AUTO 0 % (0-2); EOSINOPHILS PERCENT AUTO 1 % (0-6); Hematocrit 32.1 % (33.0-51.0); Hemoglobin 10.4 g/dL (11.5-16.0); IMMATURE GRAN ABSOLUTE AUTO 0.13 K/mm3 (0.00-0.10); IMMATURE GRAN PERCENT AUTO 1 % (0-1); LYMPHOCYTES ABSOLUTE AUTO 0.98 K/mm3 (0.84-5.20); LYMPHOCYTES PERCENT AUTO 6 % (21-46); MONOCYTES ABSOLUTE AUTO 1.45 K/mm3 (0.16-1.47); MONOCYTES PERCENT AUTO 9 % (4-13); Mean Corpuscular HGB 26.6 pg (26.0-34.0); Mean Corpuscular HGB Conc 32.4 g/dL (31.5-36.5); Mean Corpuscular Volume 82 fL (80-100); Mean Platelet Volume 9.1 fL (9.1-12.4); NEUTROPHILS ABSOLUTE AUTO 13.74 K/mm3 (1.96-9.15); NEUTROPHILS PERCENT AUTO 84 % (41-73); Platelet Count 427 K/mm3 (150-400); RDW Coefficient Variation 14.6 % (11.7-14.2); RDW Standard Deviation 43.6 fL (35.1-46.3); Red Blood Cell Count 3.91 M/mm3 (3.80-5.20); White Blood Cell Count 16.45 K/mm3 (4.00-11.30)
[2023-10-20 09:40] LABS: Albumin, Blood 2.3 g/dL (3.4-5.0); Albumin/Globulin Ratio 0.5 (0.8-1.8); Bilirubin, Total 0.6 mg/dL (0.1-1.0); Bun/Creatinine Ratio 51.6 (12.0-20.0); Calcium, Blood 11.1 mg/dL (8.5-10.1); Creatinine, Blood 0.66 mg/dL (0.40-1.00); Globulin, Blood 4.7 g/dL (2.2-4.0); Potassium, Blood 5.1 mmol/L (3.5-5.5)
[2023-10-20 09:44] VITALS: BP 116/66
--- NOTE | 2023-10-20 10:26 | NUR ---
NURSE NOTE SPOKE WITH DR WILDER THIS AM. COMFORT CARE ORDERS CANCELLED AT THIS TIME. 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 PATIENT WAS PUT ON HEPARIN DRIP FOR POSSIBLE SURGERY. ECHO REORDERED. CHARGE NURSE CALLED FOR IT TO BE DONE. PATIENT AND PATIENTS HOG DROPPER WERE IN ROOM FOR DISCUSSION. PATIENT HAD WET LUNG SOUNDS, THIS RN OFFERED SUCTION AND PATIENT DECLINED AND WANTED REST.
--- NOTE | 2023-10-20 14:33 | NUR ---
Spiritual care visit conducted. Patient is lying in bed and alert. Her friend Carmella is bedside. I Patient remembers me, by name, from previous hospitalizations. She is tearful as she shares about the pain that she is in. Pateint with the help of Carmella talks about the events that led to her hospital admission, about the strong Samaritan beliefs that she has and about the upcoming surgery that they are hoping for to help stabilize her bones. I reinforoce helpful attitudesa nd practices, normalize her experience and provide therapeutic listening and prayer. Patient responded well and stated that she was encouraged and in a better place because of the visit. I will continue to remain available to patient and family.
--- NOTE | 2023-10-20 15:03 | NUR ---
The patient is off comfort care at this time. Last evening, the surgeon explained to this RN the surgical intervention was not off the table, it was being potentially delayed for further diagnostic work-up. While the patient's son and sister have continued to verbalize their preference the patient not undergo surgery due to high risk, it is ultimately up to the patient, as long as she has decisional capacity. The plan for today is pain management, echocardiogram and cognitive evaluation to determine capacity, as there have been concerns raised regarding her ability to make sound decisions. Some of her comments appear to lack insight, such as her statement to staff, "I want the surgery because I want to get well". Family is aware of the current situation, and palliative care will remain available.
--- NOTE | 2023-10-20 16:54 | NUR ---
SHIFT SUMMARY PATIENT IS ALERT AND ORIENTED X3. PATIENT HAS BEEN NPO SINCE 0800 AFTER CONFUSION ABOUT SURGERY. PATIENT HAD ECHO DONE AND IS PENDING. HAS BEEN UPDATED ABOUT ECHO STATUS. PATIENT HAS HAD FRIENDS IN ROOM MOST OF SHIFT. WATERPROOFING MACHINE OPERATOR PUMP SEEMS TO HAVE HELPED PATIENTS PAIN. PATIENT HAS HAD HEPARIN RUNNING SINCE 0900. PATIENT HAS BEEN SUCTIONED DUE TO WET SOUNDING COUGH WITH LITTLE SUCCESS. PATIENT HAS DENIED SOB, NAUSEA, OR VOMITTING THIS SHIFT. BED IN LOCKED AND LOWEST POSITION. CALL LIGHT AND WATERPROOFING MACHINE OPERATOR BUTTON IN PLACE. WILL MONITOR UNTIL SHIFT CHANGE.
[2023-10-20 19:29] VITALS: BP 154/77
[2023-10-21 03:48] VITALS: BP 124/69
--- NOTE | 2023-10-21 05:24 | NUR ---
SHIFT SUMMARY 68 YR F ADMITTED ON 10/18/23. DNR. NO ACUTE CHANGES THIS SHIFT. PT HAS SLEPT FOR MOST OF THIS SHIFT AND HAS DENIED BEING REPOSITIONED DUE TO HOW PAINFUL IT IS. HEPARIN HAS BEEN RUNNING FOR THE ENTIRETY OF THIS SHIFT. SHE HAS BEEN NPO SINCE MIDNIGHT IN ANTICIPATION OF SURGERY TODAY. PT IS ALERT AND ORIENTED BUT IS EXTREMELY SOFT SPOKEN AND HARD TO UNDERSTAND. SHE APPEARS TO GET FRUSTRATED WHEN ASKED TO REPEAT HERSELF. PUREWIK IS IN PLACE AND IS AFFECTIVE. BED IN LOW POITION AND CALL LIGHT IN REACH.
[2023-10-21 06:47] LABS: BASOPHILS ABSOLUTE AUTO 0.06 K/mm3 (0.00-0.23); BASOPHILS PERCENT AUTO 0 % (0-2); EOSINOPHILS ABSOLUTE AUTO 0.01 K/mm3 (0.00-0.68); EOSINOPHILS PERCENT AUTO 0 % (0-6); Hemoglobin 10.2 g/dL (11.5-16.0); IMMATURE GRAN ABSOLUTE AUTO 0.18 K/mm3 (0.00-0.10); IMMATURE GRAN PERCENT AUTO 1 % (0-1); LYMPHOCYTES ABSOLUTE AUTO 1.12 K/mm3 (0.84-5.20); LYMPHOCYTES PERCENT AUTO 6 % (21-46); MONOCYTES ABSOLUTE AUTO 2.16 K/mm3 (0.16-1.47); MONOCYTES PERCENT AUTO 12 % (4-13); Mean Corpuscular HGB 26.4 pg (26.0-34.0); Mean Corpuscular HGB Conc 31.9 g/dL (31.5-36.5); Mean Corpuscular Volume 83 fL (80-100); Mean Platelet Volume 9.7 fL (9.1-12.4); NEUTROPHILS ABSOLUTE AUTO 15.07 K/mm3 (1.96-9.15); NEUTROPHILS PERCENT AUTO 81 % (41-73); Platelet Count 474 K/mm3 (150-400); RDW Coefficient Variation 14.8 % (11.7-14.2); RDW Standard Deviation 44.3 fL (35.1-46.3); Red Blood Cell Count 3.87 M/mm3 (3.80-5.20)
[2023-10-21 07:21] LABS: Bun/Creatinine Ratio 53.7 (12.0-20.0); Calcium, Blood 10.9 mg/dL (8.5-10.1); Creatinine, Blood 0.67 mg/dL (0.40-1.00); Potassium, Blood 4.9 mmol/L (3.5-5.5)
[2023-10-21 07:25] VITALS: BP 138/68
[2023-10-21 15:38] VITALS: BP 135/84
--- NOTE | 2023-10-21 18:05 | NUR ---
SHIFT SUMMARY PT AXO TO SELF AND FRIENDS WHO ARE VISITING. PT WAS NPO AT BEGINING OF SHIFT UNTIL DR BARTH DISCUSSED CASE WITH PEGGY, PT'S SON AND PATIENT. NO SURGERY THIS SHIFT. HEPARIN GTT DC'D PER DR MIGUEL, XARELTO STARTED. INFORMATICS COORDINATOR INFUSING PER EMAR, TOTALS CLEARED WITH SECOND RN, SEE EMAR. PT INCONTINENT AND CHANGED AND TURNED TOLERATED AND NEEDED. BED BATH COMPLETED. PT ASPIRATION RISK, FAMILY AND PATIENT EDUCATED ON THIS BUT PT INSISTS ON EATING AND DRINKING DESPITE ASPIRATION. PT HAS WEAK THICK COUGH AND CLEARS SPUTUM, YANKAUR UNSUCESSFUL. IV PATENT AND INFUSING LR PER EMAR. BED IN LOW POSITION, CALL LIGHT WITHIN REACH.
[2023-10-21 19:49] VITALS: BP 126/80
[2023-10-22 02:20] VITALS: BP 118/67
--- NOTE | 2023-10-22 04:14 | NUR ---
SHIFT SUMMARY PT A&O TO SELF. PT SLEPT FOR APPROXIMATELY 3-4 HOURS. PT CONTINUED TO HAVE PRODUCTIVE COUGH OF STRINGY THICK BROWNISH SPUTUM. PT EXPELLING SPUTUM ON HER OWN WITH HACKING COUGH. COUGH SPORATIC, LUNGS COARSE PT REMINDED MULTIPLE TIMES ABOUT USING HER PAIN PUMP BUTTON. PT EXPRESSED INCREASED PAIN WITH POSITION/ATTENDS CHANGES. PERIWICK PLACED TO TRY AND MINIMIZE ROLLING WITH BRIEF CHANGES. PT PULSE FOLLOWING POSTION CHANGE ELEVATED AT 126. RECHECKED PULSE APPROXIMATELY 15 MINUTES LATER WITH PULSE DECREASING TO 102. DNR BAND PLACED AFTER ORDERS VERIFIED WITH JAY JULES PATENT THROUGH THE NIGHT. 10/22/23 SUBHASH GREGORY RN PT SON EXPECTED TODAY TO HELP MAKE SOME DECISIONS WITH HER CARE.
[2023-10-22 07:17] VITALS: BP 135/85
--- NOTE | 2023-10-22 12:56 | NUR ---
Spiritual Care Callback. Pt. is awake and aware but can only communicate non-verbally. Friends are at bedside, and have verbalized that they have been for much of the Pts. hospital stay. Facilitated a life review, read scripture and prayed for the Pt. Pt. acknowleged with affirming nods that she would lilke to have her dot etcher apprentice visit, and to have me try to contact him. Friends at bedside varbalize that the Pts. son would be arriving this evening. Though technically the Pt. is not presently on [facility], [facility] was discussed as the home of choice should she pass. Friends at bedside verbalized gratitude for the spiritual care visit.
--- NOTE | 2023-10-22 13:50 | NUR ---
Met with pt friends at bedside. they were having moral distress and very angry with the care plan. Spent forty five minutes with them. Facilitated them expressing their stress. They asked for chaplian to come. Therputic listening by the end some resolution met. Me is progressing, son is on his way. Discussed pt with surgeon he is struggling with her pain. discussed son need to have time to interact with her and he explained some of her history. He is needing closure. Will continue to support.
--- NOTE | 2023-10-22 16:36 | NUR ---
PT AWAKE AT START OF SHIFT, BUT UNABLE TO COMMUNICATE MUCH D/T SOB AND DYSPNEA. 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 L/S VERY COARSE WITH WET PC. 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 PT ALSO MEDICATED WITH PO PAIN MEDICATION PRIOR TO REPOSITIONING TO ASSIST WITH PAIN. PUREWICK IN PLACE TO DECREASE TURNING AND CLEANING. MULTIPLE VISITORS IN MID MORNING. DR WILDER HERE LATER TO TALK WITH FAMILY. PT'S SON TO THIS AFTERNOON ASSISTING PT TO COMFORT CARE. PT'S BREATHING BECOMING MORE DIFFICULT AND LABORED; DR WILDER REQUESTED ROXANOL FOR AIR HUNGER. PT ALREADY TRANSITIONING APNIC BREATHING. PT PASSING LATER PASSING AT 1440 WITH SON AND FAMILY AT BED SIDE. DR WILDER NOTIFIED OF TOD. VIRTUALIZATION ENGINEER NOTIFIED [place]. RESIDENTIAL ADVISOR AND MORTUARY. SON GIVEN MORTUARY INFO. MORTUARY TO CONTACT SON. ALL BELONGINGS WENT WITH SON.
== END 2023-10-22 14:40 | DRG 543 ==
LOC: ER 10:34 → MEDS 13:51
PROVIDERS: Emergency Medicine; ADMIT Internal Medicine
DX: M84.451A Pathological fracture, right femur, initial encounter for fracture (principal); C34.90 Malignant neoplasm of unspecified part of unspecified bronchus or lung; J96.11 Chronic respiratory failure with hypoxia; Z51.5 Encounter for palliative care; Z66 Do not resuscitate; M84.421A Pathological fracture, right humerus, initial encounter for fracture; K21.9 Gastro-esophageal reflux disease without esophagitis; E78.5 Hyperlipidemia, unspecified; G89.29 Other chronic pain; Z86.718 Personal history of other venous thrombosis and embolism; Z86.711 Personal history of pulmonary embolism; Z86.19 Personal history of other infectious and parasitic diseases; Z95.828 Presence of other vascular implants and grafts; Z79.01 Long term (current) use of anticoagulants
CPT/HCPCS: 36415; 73060; 73552; 80048; 80053; 85014; 85018; 85025; 85049; 85520; 85610; 85730; 93005; 93010; 93308; 94762; 96374; 96375; 96376; 99285-25; A9270; J1170; J1644; J1885; J2060; J2405; J3010; J7040; J7120